=== PATIENT | female | born 1945 | race Caucasian/White ===

== ENCOUNTER 2017-06-10 16:36 | Inpatient (IN) | payer MEDICARE ==
[~2017-06-10] VITALS: Ht 158.8 cm; Wt 80.1 kg
[2017-06-10] MEDS ORDERED: MORPHINE SULFATE 4 MG/ML, 1ML ONE (16:40)
[2017-06-10] MEDS: MORPHINE SULFATE 4 MG/ML, 1ML IVPush PRN ×2 (16:42→21:58)
[2017-06-10] MEDS ORDERED: PLEASE ENTER ALLERGIES MC SCH (17:00)
[2017-06-10] MEDS ORDERED: ONDANSETRON ODT 4 MG PO ONE (17:00)
[2017-06-10] MEDS ORDERED: SODIUM CHLORIDE FLUSH 10ML SYR IVF ONE (17:00)
[2017-06-10] MEDS ORDERED: PLEASE ENTER HEIGHT AND WEIGHT MC SCH (17:00)
[2017-06-10 17:01] LABS: BASOPHILS # (AUTO) 0.01 x10^3/uL (0-0.1); BASOPHILS % (AUTO) 0 % (0-1); EOSINOPHILS # (AUTO) 0.17 x10^3/uL (0-0.4); EOSINOPHILS % (AUTO) 2 % (1-7); LYMPHOCYTES # (AUTO) 2.55 x10^3/uL (1-3.4); LYMPHOCYTES % (AUTO) 23 % (22-44); MD NO; MEAN CORPUSCULAR HEMOGLOBIN 33.8 pg (27.0-34.8); MEAN CORPUSCULAR VOLUME 99.6 fL (80-100); MEAN PLATELET VOLUME 6.6 fL (7.4-10.4); MONOCYTES # (AUTO) 0.91 x10^3/uL (0.2-0.8); MONOCYTES % (AUTO) 8 % (2-9); NEUTROPHILS % (AUTO) 68 % (42-75); PLATELET COUNT 232 x10^3/uL (130-400); RED BLOOD COUNT 4.81 x10^6/uL (3.82-5.3); RED CELL DISTRIBUTION WIDTH 12.8 % (9.6-15.2)
[2017-06-10 17:05] LABS: INTERNATIONAL NORMALIZED RATIO 1.08 (0.93-1.1); PROTHROMBIN TIME 11.1 Seconds (9.6-11.5)
[2017-06-10] MEDS ORDERED: CHOL3000 PO (17:05)
[2017-06-10] MEDS ORDERED: CINN1CAP PO (17:05)
[2017-06-10] MEDS ORDERED: PLAN450C PO (17:05)
[2017-06-10] MEDS ORDERED: TURMERIC CURCUMIN (17:05)
[2017-06-10] MEDS ORDERED: LISI5TAB7 PO (17:05)
[2017-06-10] MEDS ORDERED: OMEG-14 PO (17:05)
[2017-06-10] MEDS ORDERED: LEVO150T5 PO (17:05)
[2017-06-10] MEDS ORDERED: FEXO180T72 PO (17:05)
[2017-06-10] MEDS ORDERED: CHLO15MO PO (17:05)
[2017-06-10] MEDS ORDERED: FLUT9.9S NAS (17:05)
[2017-06-10] MEDS ORDERED: OLOP2.5D OP (17:05)
[2017-06-10] MEDS ORDERED: JOINT FORMULA (17:05)
[2017-06-10] MEDS ORDERED: ASPI-621 PO (17:05)
[2017-06-10] MEDS ORDERED: ESCI10TA10 PO (17:05)
[2017-06-10 17:10] LABS: ALBUMIN 3.8 g/dL (3.4-5.0); ANION GAP 9 mmol/L (5-15); CHLORIDE 104 mmol/L (98-107); CREATININE 0.86 mg/dL (0.55-1.02)
[2017-06-10] MEDS ORDERED: DOXY100C2 PO (17:18)
[2017-06-10] MEDS ORDERED: BENZ-17 PO (17:18)
[2017-06-10] MEDS ORDERED: MORPHINE SULFATE 4 MG/ML, 1ML IVPush ONE (18:00)
[2017-06-10] MEDS ORDERED: ONDANSETRON ODT 4 MG PO PRN (19:30)
[2017-06-10] MEDS ORDERED: BISACODYL 10 MG SUPP PR PRN (19:30)
[2017-06-10 20:30] VITALS: BP 161/84
[2017-06-10] MEDS: ACETAMINOPHEN 325 MG TABLET PO PRN (21:58)
[2017-06-10] MEDS: SODIUM CHLORIDE FLUSH 10ML SYR IVF SCH (21:59)
[2017-06-10] MEDS: FLUTICASONE NASAL SPRAY 16GM NAS SCH (22:27)
[2017-06-11] MEDS: MORPHINE SULFATE 4 MG/ML, 1ML IVPush PRN ×2 (02:15→10:49)
[2017-06-11 02:19] VITALS: BP 154/87
[2017-06-11 05:09] LABS: BASOPHILS # (AUTO) 0.02 x10^3/uL (0-0.1); BASOPHILS % (AUTO) 0 % (0-1); EOSINOPHILS # (AUTO) 0.06 x10^3/uL (0-0.4); EOSINOPHILS % (AUTO) 1 % (1-7); LYMPHOCYTES # (AUTO) 1.71 x10^3/uL (1-3.4); LYMPHOCYTES % (AUTO) 14 % (22-44); MD NO; MEAN CORPUSCULAR HEMOGLOBIN 33.4 pg (27.0-34.8); MEAN CORPUSCULAR HGB CONC 33.5 g/dL (32.4-35.8); MEAN CORPUSCULAR VOLUME 99.7 fL (80-100); MEAN PLATELET VOLUME 6.7 fL (7.4-10.4); MONOCYTES # (AUTO) 1.13 x10^3/uL (0.2-0.8); MONOCYTES % (AUTO) 9 % (2-9); NEUTROPHILS # (AUTO) 9.43 x10^3/uL (1.8-6.8); NEUTROPHILS % (AUTO) 76 % (42-75); PLATELET COUNT 227 x10^3/uL (130-400); RED BLOOD COUNT 4.27 x10^6/uL (3.82-5.3); RED CELL DISTRIBUTION WIDTH 12.7 % (9.6-15.2)
[2017-06-11 05:18] LABS: ALBUMIN 3.1 g/dL (3.4-5.0); ANION GAP 6 mmol/L (5-15); CALCIUM 8.6 mg/dL (8.5-10.1); CHLORIDE 103 mmol/L (98-107)
[2017-06-11 05:21] LABS: ALANINE AMINOTRANSFERASE 68 U/L (12-78); ALKALINE PHOSPHATASE 57 U/L (45-117); BILIRUBIN,TOTAL 0.9 mg/dL (0.2-1.0); CREATININE 0.68 mg/dL (0.55-1.02); TOTAL PROTEIN 6.7 g/dL (6.4-8.2)
[2017-06-11] MEDS: morphine SULFATE 10 MG/ML, 1ML IVPush PRN ×2 (06:21→10:50)
[2017-06-11 07:02] VITALS: BP 148/75
[2017-06-11] MEDS: CITALOPRAM 20 MG TABLET PO SCH (08:56)
[2017-06-11] MEDS: SODIUM CHLORIDE FLUSH 10ML SYR IVF SCH ×2 (08:56→20:47)
[2017-06-11] MEDS: FLUTICASONE NASAL SPRAY 16GM NAS SCH (08:56)
[2017-06-11] MEDS: LEVOTHYROXINE 150 MCG TABLET PO SCH (08:57)
[2017-06-11] MEDS: CETIRIZINE 10 MG TABLET PO SCH (08:57)
[2017-06-11] MEDS: CHOLECALCIFEROL 1,000 UNIT TABLET PO SCH (08:57)
[2017-06-11] MEDS: LISINOPRIL 5 MG TABLET PO SCH (08:57)
[2017-06-11] MEDS ORDERED: SODIUM CHLORIDE 0.9% 100 ML ONE (13:15)
[2017-06-11] MEDS ORDERED: KETOROLAC 60 MG/2 ML ONE (13:15)
[2017-06-11] MEDS ORDERED: ROPIvacaine/PF 0.5%, 30 ML ONE (13:15)
[2017-06-11] MEDS ORDERED: VANCOMYCIN 1,000 MG ONE (13:15)
[2017-06-11] MEDS ORDERED: TRANEXAMIC ACID 100 MG/ML, 10ML ONE ×2 (13:15)
[2017-06-11] MEDS ORDERED: EPINEPHRINE 1 MG/ML, 1ML ONE (13:16)
[2017-06-11 13:32] VITALS: BP 155/72
[2017-06-11] MEDS ORDERED: OxyconTIN ER 10 MG TAB.ER PO ONE (14:00)
[2017-06-11] MEDS ORDERED: GABAPENTIN 300 MG CAPSULE PO ONE (14:00)
[2017-06-11] MEDS ORDERED: ACETAMINOPHEN 500 MG TABLET PO ONE (14:00)
[2017-06-11] MEDS ORDERED: ONDANSETRON ODT 8 MG PO ONE (14:00)
[2017-06-11] MEDS ORDERED: LACTATED RINGERS 1,000 ML IV SCH (14:30)
[2017-06-11] MEDS ORDERED: FENTANYL PF 250 MCG/5ML ONE (14:46)
[2017-06-11] MEDS ORDERED: MIDAZOLAM 1 MG/ML, 2ML ONE (14:46)
[2017-06-11] MEDS ORDERED: LIDOCAINE 2%, 10ML ONE (14:47)
[2017-06-11] MEDS ORDERED: PROPOFOL 10 MG/ML, 20ML ONE (14:47)
[2017-06-11] MEDS ORDERED: WATER-INJECTION,STERILE 10 ML IV ONE (14:48)
[2017-06-11] MEDS ORDERED: CEFAZOLIN 1,000 MG ONE ×2 (14:48)
[2017-06-11] MEDS ORDERED: PROMETHAZINE 25 MG/ML, 1ML IV PRN (15:30)
[2017-06-11] MEDS ORDERED: morphine SULFATE 10 MG/ML, 1ML IV PRN (15:30)
[2017-06-11] MEDS ORDERED: FENTANYL PF 100 MCG/2ML IV PRN (15:30)
[2017-06-11] MEDS ORDERED: LABETALOL 5MG/ML, 20ML IV PRN (15:30)
[2017-06-11] MEDS ORDERED: hydrALAzine 20 MG/ML, 1ML IV PRN (15:30)
[2017-06-11] MEDS ORDERED: OXYcodone 5 MG/5 ML ORAL.SOL UDC PO PRN ×2 (15:30→18:00)
[2017-06-11] MEDS ORDERED: CEFAZOLIN 1,000 MG IM SCH (17:30)
[2017-06-11] MEDS ORDERED: OXYcodone 5 MG/5 ML ORAL.SOL UDC ONE (17:48)
[2017-06-11] MEDS ORDERED: MORPHINE SULFATE 4 MG/ML, 1ML IV PRN (18:00)
[2017-06-11 20:23] VITALS: BP 91/52
[2017-06-11] MEDS: ASPIRIN 81 MG TABLET CHEW PO SCH (20:47)
[2017-06-11] MEDS: CEFAZOLIN PMX 2GM/50ML 50 ML IVPB SCH (23:46)
[2017-06-12 00:08] VITALS: BP 87/50
[2017-06-12] MEDS: ACETAMINOPHEN 325 MG TABLET PO PRN ×2 (03:33→09:36)
[2017-06-12 04:05] VITALS: BP 98/60
[2017-06-12] MEDS: LEVOTHYROXINE 150 MCG TABLET PO SCH (05:31)
[2017-06-12 07:22] LABS: ANION GAP 9 mmol/L (5-15); CALCIUM 7.6 mg/dL (8.5-10.1); CHLORIDE 101 mmol/L (98-107); CREATININE 0.93 mg/dL (0.55-1.02)
[2017-06-12 07:23] LABS: BASOPHILS # (AUTO) 0.01 x10^3/uL (0-0.1); BASOPHILS % (AUTO) 0 % (0-1); EOSINOPHILS % (AUTO) 0 % (1-7); LYMPHOCYTES % (AUTO) 7 % (22-44); MD NO; MEAN CORPUSCULAR HEMOGLOBIN 33.6 pg (27.0-34.8); MEAN CORPUSCULAR HGB CONC 33.9 g/dL (32.4-35.8); MEAN CORPUSCULAR VOLUME 99.1 fL (80-100); MEAN PLATELET VOLUME 6.7 fL (7.4-10.4); MONOCYTES # (AUTO) 1.29 x10^3/uL (0.2-0.8); MONOCYTES % (AUTO) 9 % (2-9); NEUTROPHILS # (AUTO) 11.52 x10^3/uL (1.8-6.8); NEUTROPHILS % (AUTO) 83 % (42-75); PLATELET COUNT 210 x10^3/uL (130-400); RED BLOOD COUNT 3.67 x10^6/uL (3.82-5.3); RED CELL DISTRIBUTION WIDTH 12.5 % (9.6-15.2)
[2017-06-12 07:56] VITALS: BP 124/73
[2017-06-12] MEDS: SODIUM CHLORIDE FLUSH 10ML SYR IVF SCH (08:09)
[2017-06-12] MEDS: CEFAZOLIN PMX 2GM/50ML 50 ML IVPB SCH (08:09)
[2017-06-12] MEDS: FLUTICASONE NASAL SPRAY 16GM NAS SCH (08:10)
[2017-06-12] MEDS: CHOLECALCIFEROL 1,000 UNIT TABLET PO SCH (08:11)
[2017-06-12] MEDS: CETIRIZINE 10 MG TABLET PO SCH (08:12)
[2017-06-12] MEDS: LISINOPRIL 5 MG TABLET PO SCH (08:12)
[2017-06-12] MEDS: ASPIRIN 81 MG TABLET CHEW PO SCH (08:13)
[2017-06-12] MEDS: CITALOPRAM 20 MG TABLET PO SCH (08:13)
[2017-06-12 08:15] VITALS: BP 99/63
[2017-06-12] MEDS: OXYcodone IR 5MG TABLET PO PRN ×2 (09:35→13:37)
[2017-06-12 13:19] VITALS: BP 114/64
[2017-06-12 15:33] VITALS: BP 122/78
[2017-06-12] MEDS ORDERED: ROCURONIUM 10 MG/ML,10ML ONE (15:50)
[2017-06-12] MEDS ORDERED: DEXAMETHASONE 4 MG/ML, 1ML ONE (15:50)
[2017-06-12] MEDS ORDERED: PHENYLEPHRINE 10 MG/ML ONE (15:50)
[2017-06-12] MEDS ORDERED: ASPI-515 PO (16:16)
[2017-06-12] MEDS ORDERED: OXYC5TAB3 PO (16:23)
[2017-06-12] MEDS ORDERED: TRAM50TA2 PO (16:24)
[2017-06-12] MEDS ORDERED: MELO7.5T31 PO (16:26)
[2017-06-12] MEDS ORDERED: ONDA4TAB10 PO (16:27)
== END 2017-06-12 16:45 | disposition home or self-care (01) | DRG 469 ==
LOC: OR 18:58 → EDIP 19:05 → 4NOR 19:45 → DCLOUNGE 06-12 16:16
PROVIDERS: ADMIT Hospitalist; ATTEND Hospitalist
PROC: 0SR902Z Replacement of Right Hip Joint with Metal on Polyethylene Synthetic Substitute, Open Approach (ICD-10-PCS; principal; 2017-06-11 15:30)
DX: S72.011A Unspecified intracapsular fracture of right femur, initial encounter for closed fracture (principal); J96.01 Acute respiratory failure with hypoxia; E78.5 Hyperlipidemia, unspecified; E89.0 Postprocedural hypothyroidism; F32.9 Major depressive disorder, single episode, unspecified; I10 Essential (primary) hypertension; W18.30XA Fall on same level, unspecified, initial encounter; Y93.89 Activity, other specified; Y92.049 Unspecified place in boarding-house as the place of occurrence of the external cause; Y99.8 Other external cause status
CPT/HCPCS: 36415; 71045; 72128; 72131; 72170; 76000; 80048; 80053; 82040; 82306; 85025; 85610; 86850; 86900; 93005; 99285; C1713; J0171; J0690; J1100; J1885; J2250; J2704; J2795; J3010; J3370; J3490; Q0162; C1776; J2270; J2370